=== PATIENT | female | born 1985 | race Caucasian/White ===

== ENCOUNTER 2016-08-09 10:38 | Emergency (ER) | payer OTHER ==
[~2016-08-09] VITALS: Ht 157.5 cm; Wt 74.8 kg
[2016-08-09 10:40] VITALS: BP 122/83
--- NOTE | 2016-08-09 11:00 | ED EYE COMPLAINT ---
History of Present Illness General Chief Complaint: Eye Problems Stated Complaint: EXPOSURE AT WORK Source: patient, old records Exam Limitations: no limitations Vital Signs & Intake/Output Vital Signs & Intake/Output Vital Signs Date Time Temp Pulse Resp B/P Pulse O2 O2 Flow FiO2 Ox Delivery Rate 08/09 1040 97.1 69 20 122/83 98 Room Air Allergies Coded Allergies: NO KNOWN ALLERGIES (12/14/14) Reconcile Medications Norgestimate-Ethinyl Estradiol (Tri-Previfem Tablet) [id number] 28 TABLET 1 TAB PO DAILY BC (Reported) Triage Note: PT TO ED S/P BLOOD EXPOSURE AT WORK. PT IS [facility] IN OR, STATES A PATIENT'S BLOOD SPLASHED IN HER RIGHT EYE DURING SURGICAL PROCEDURE. PT FLUSHED EYE RIGHT AWAY. Triage Nurses Notes Reviewed? yes Onset: Abrupt Duration: hour(s): (1), better, resolved prior to arrival Timing: single episode today Injury Environment: work Severity: mild Severity Numbers: 1 No Modifying Factors: none Right Eye Associated Symptoms: itching : No Patient currently breastfeeds: No HPI: 30-year-old female with no known medical history presents emergency room for evaluation after she was splashed in the face while in the operating room just prior to arrival patient is tachycardia or and was initially on a below knee amputation revision. She was wearing a mask covering her nose and mouth. She states that she did get blood unfortunately under her visor and into her right eye. She states the eye was thoroughly irrigated in the OR. On arrival the patient denies any complaints. She wears glasses for vision, no vision loss blurry vision. She denies any other complaints there is no pain, no photophobia headache nausea vomiting. Patient denies foreign body sensation to I (ALAINA DEE) Past History Travel History Traveled to [place] past 21 day No Medical History Any Pertinent Medical History? none Surgical History Surgical History: appendectomy Psychosocial History What is your primary language Polish Tobacco Use: Never used ETOH Use: occasional use Illicit Drug Use: denies illicit drug use Family History Hx Contributory? No (ALAINA DEE) Review of Systems Review of Systems Constitutional: Reports: no symptoms, see HPI. All Other Systems: Reviewed and Negative Comments Review of systems: See HPI, All other systems negative. Constitutional, no chills no fever, no malaise HEENT: No visual changes no sore throat no congestion, no ear pain Cardiovascular: No chest pain , no palpitation , Skin, no jaundice no rashes, no change in skin Respiratory: No dyspnea no cough no sputum GI: No nausea no vomiting, Muscle skeletal: No joint pain,, no back pain, no neck pain, Neurologic: No numbness no headache Psych: No stress Heme/endocrine: No bruising no bleeding Immunology: No lymphadenopathy (ALAINA DEE) Physical Exam General Appearance: well developed/nourished, no apparent distress, alert, awake General Inspection: normal inspection Eyelid: normal inspection Conjunctiva/Sclera: normal inspection Cornea: normal inspection EOM: intact Pupil: normal accommodation, normal pupil, PERRL General Inspection: normal inspection Eyelid: normal inspection Conjunctiva/Sclera: normal inspection Cornea: normal inspection EOM: intact Pupil: normal accommodation, normal pupil, PERRL Physical Exam Comments: Well-developed well-nourished patient in no apparent distress. HEENT: Atraumatic, extraocular motion intact Neck: Supple, FROM Back: FROM Cardiovascular: Regular rate and rhythms no murmurs Respiratory: No respiratory distress. Patient speaking in full complete sentences. Breath sounds clear to auscultation bilaterally: NO W/R/R Extremities: full range of motion Neuro: Alert and oriented x3 Skin: Warm & dry;No appreciable rash on exposed skin Psych: Mood affect normal, normal memory normal judgment. (ALAINA DEE) Progress Differential Diagnosis: corneal abrasion, corneal foreign body, conjunctivitis Plan of Care: Orders Procedure Date/time Status HIV EXPOSURE/NEEDLESTICK 08/09 110 Complete HUMAN BETA HCG SCREEN 08/09 110 Complete HEPT C ANTIBODY 08/09 1104 Complete HEPT B SURFACE ANTIBODY 08/09 1104 Complete GAMMA GLUTAMYL TRANSFERASE 08/09 1104 Complete COMPREHENSIVE METABOLIC PANEL 08/09 1104 Complete CBC WITHOUT DIFFERENTIAL 08/09 110 Complete TRNSFRASE ASPART AMINO 08/09 110 Complete TRNSFRAS ALANINE AMINO 08/09 110 Complete Laboratory Tests 08/09/16 1130: Anion Gap 10, Estimated GFR > 60, BUN/Creatinine Ratio 21.7, Glucose 95, Calcium 10.3 H, Total Bilirubin 0.3, GGT 14, AST 17, ALT 26, Alkaline Phosphatase 53, Total Protein 7.6, Albumin 4.3, Globulin 3.3, Albumin/Globulin Ratio 1.3, Total Beta HCG NEGATIVE, CBC w Diff NO MAN DIFF REQ, RBC 3.96 L, MCV 89.6, MCH 30.1, RDW 13.0, MPV 8.7, Gran % 64.6, Lymphocytes % 28.2, Monocytes % 5.9, Eosinophils % 0.9, Basophils % 0.4, Absolute Granulocytes 4.3, Absolute Lymphocytes 1.9, Absolute Monocytes 0.4, Absolute Eosinophils 0.1, Absolute Basophils 0, PUBS MCHC 33.6, Hep Bs Antibody REACTIVE, Hepatitis C Antibody NONREACTIVE, HIV 1&2 Antibody NONREACTIVE The eye was thoroughly irrigated prior to arrival case was discussed with Dr. fofana, the source patient is known and currently in the operating room he will have his labs drawn, discussed the patient need for blood work today, need for close follow-up with occupational health on Friday I will call her later on today when her results are back answered all of her questions she feels comfortable with plan patient denies any vision changes cleared for discharge 08/09/2016 3:41:50 PM discussed with the patient all of her lab results pending source patient's labs (ALAINA DEE) Departure Departure Time of Disposition: 1114 Disposition: HOME OR SELF CARE Condition: Stable Clinical Impression Primary Impression: Chemical exposure of eye Referrals: BESSY ARAMBULA MD (PCP/Family) Additional Instructions: FOLLOW UP WITH OCCUPATIONAL HEALTH DISCUSSED NEXT WEEK. THIS ER WILL CALL YOU WITH THE RESULTS. Departure Forms: Customer [employer] [facility] General Discharge Information (ALAINA DEE) PA/CLERK OF SCALES Co-Sign Statement Statement: ED Attending supervision documentation- [] I saw and evaluated the patient. I have also reviewed all the pertinent lab results and diagnostic results. I agree with the findings and the plan of care as documented in the PA's/CLERK OF SCALES's documentation. [X] I have reviewed the ED Record and agree with the PA's/CLERK OF SCALES's documentation. [] Additions or exceptions (if any) to the PAs/CLERK OF SCALES's note and plan are summarized below: [] (NATE FOFANA DO
[2016-08-09] MEDS ORDERED: TRI-PREVIFEM T1 EACH PO (11:16)
[2016-08-09 11:58] LABS: ABSOLUTE BASOPHIL COUNT 0 /CUMM (0.0-0.2); ABSOLUTE EOSINOPHIL COUNT 0.1 /CUMM (0.0-0.7); ABSOLUTE GRANULOCYTE CT 4.3 /CUMM (1.4-6.5); ABSOLUTE LYMPH COUNT 1.9 /CUMM (1.2-3.4); ABSOLUTE MONOCYTE COUNT 0.4 /CUMM (0.10-0.60); BASOPHIL % 0.4 % (0.0-2.0); EOSINOPHIL % 0.9 % (0-5); GRANULOCYTE % 64.6 % (42.2-75.2); HEMATOCRIT 35.5 % (37-47); MEAN CORPUSCULAR HGB 30.1 PG (27.0-31.0); MEAN CORPUSCULAR HGB CONC 33.6 G/DL (33.0-37.0); MEAN CORPUSCULAR VOLUME 89.6 FL (81.0-99.0); MEAN PLATELET VOLUME 8.7 FL (7.4-10.4); PLATELET COUNT 271 /CUMM (130-400); RED BLOOD CELL CT 3.96 /CUMM (4.20-5.40); WHITE BLOOD CELL COUNT 6.6 /CUMM (4.8-10.8)
== END 2016-08-09 11:45 ==
LOC: ERH 10:38
PROVIDERS: Physician Assistant Medical
DX: Z77.21 Contact with and (suspected) exposure to potentially hazardous body fluids (principal); X58.XXXA Exposure to other specified factors, initial encounter; Y93.89 Activity, other specified; Y92.234 Operating room of hospital as the place of occurrence of the external cause
CPT/HCPCS: 86803; 87389